=== PATIENT | male | born 1985 | race Caucasian/White ===

== ENCOUNTER 2016-08-25 15:29 | Emergency (ER) | payer SELFPAY ==
[~2016-08-25] VITALS: Ht 170.2 cm; Wt 90.7 kg
== END 2016-08-25 16:34 | disposition short-term general hospital (02) ==
LOC: ER 15:29 → EDBD 15:30 → ER 15:30
DX: K21.9 Gastro-esophageal reflux disease without esophagitis (principal)

== ENCOUNTER 2016-08-31 13:16 | Inpatient (IN) | payer SELFPAY ==
[~2016-08-31] VITALS: Ht 170.2 cm; Wt 80.8 kg
[2016-08-31] MEDS ORDERED: GLUCOPHAGE XR500 MG PO (13:39)
[2016-08-31] MEDS ORDERED: PRILOSEC20 MG PO (13:39)
[2016-08-31] MEDS ORDERED: ZOFRAN4 MG PO (13:40)
[2016-09-02] MEDS ORDERED: DIFLUCAN100 MG PO (10:03)
[2016-09-02] MEDS ORDERED: LIDOCAINE HCL V15 ML PO (10:12)
[2016-09-02] MEDS ORDERED: MIRALAX17 GM PO (10:13)
[2016-09-02] MEDS ORDERED: PRILOSEC40 MG PO (10:14)
[2016-09-02] MEDS ORDERED: LINZESS145 MCG PO (10:16)
[2016-09-02] MEDS ORDERED: LEVEMIR FL100 UNIT/1 SUBCUT (10:20)
[2016-09-02] MEDS ORDERED: INVOKAMET XR 11 EACH PO (10:26)
[2016-09-02] MEDS ORDERED: NOVOLOG FL100 UNIT/1 SUBCUT (10:43)
== END 2016-09-02 12:45 | disposition short-term general hospital (02) | DRG 638 ==
LOC: ER 13:16 → EDBD 13:16 → IP 16:20
PROVIDERS: ADMIT Family Medicine
DX: E11.00 Type 2 diabetes mellitus with hyperosmolarity without nonketotic hyperglycemic-hyperosmolar coma (NKHHC) (principal); N17.9 Acute kidney failure, unspecified; E11.65 Type 2 diabetes mellitus with hyperglycemia; B37.9 Candidiasis, unspecified; K59.00 Constipation, unspecified; E87.6 Hypokalemia; D72.829 Elevated white blood cell count, unspecified; E86.0 Dehydration
CPT/HCPCS: J1815; J2765